=== PATIENT | female | born 1990 | race Hispanic/Latino ===

== ENCOUNTER 2017-10-07 09:36 | Outpatient (CLI) | payer OTHER ==
--- NOTE | 2017-10-07 14:21 | Ultrasound Report ---
Pelvic ultrasound: Pelvic pain. Endovaginal and transabdominal imaging demonstrates an anteverted uterus measuring approximately 83.9 x 5.0 x 10.7 cm. The myometrium is homogeneous. The endometrial thickness is 9.6 mm and the endometrium is closed. Nabothian cysts are present in the cervix the largest measuring 12 mm. The right ovary measures 25 mm as does the left. Both ovaries are echogenically unremarkable. No free fluid identified. Impressions: No significant pathology identified.
== END 2017-10-07 09:37 | disposition home or self-care (01) ==
LOC: US 09:36
PROVIDERS: ATTEND Family Medicine
DX: N88.8 Other specified noninflammatory disorders of cervix uteri (principal)
CPT/HCPCS: 76830; 76856